=== PATIENT | male | born 1975 | race Two or more races ===

== ENCOUNTER 2020-07-21 12:00 | Outpatient (REF) | payer MEDICAID, SELFPAY | END 2020-07-21 12:01 | disposition home or self-care (01) | LOC: HO.LAB 12:00 | PROVIDERS: Visit Provider Internal Medicine | DX: Z20.828 Contact with and (suspected) exposure to other viral communicable diseases (principal) | CPT/HCPCS: C9803; U0003 ==

== ENCOUNTER 2020-08-16 10:18 | Outpatient (REF) | payer MEDICAID, OTHER, SELFPAY | END 2020-08-16 10:19 | disposition home or self-care (01) | LOC: HO.LAB 10:18 | PROVIDERS: Visit Provider Internal Medicine | DX: Z20.822 Contact with and (suspected) exposure to COVID-19 (principal) | CPT/HCPCS: 36415; C9803; U0003 ==

== ENCOUNTER 2020-09-29 10:23 | Outpatient (REF) | payer OTHER, SELFPAY | END 2020-09-29 10:24 | disposition home or self-care (01) | LOC: HO.LAB 10:23 | PROVIDERS: Visit Provider Internal Medicine | DX: Z20.822 Contact with and (suspected) exposure to COVID-19 (principal) | CPT/HCPCS: 36415; C9803; U0003; U0005 ==